=== PATIENT | male | born 1980 | race Caucasian/White ===

== ENCOUNTER 2021-09-17 09:44 | Emergency (ER) | payer BC, SELFPAY ==
[2021-09-17 09:45] VITALS: BP 136/88; PULSE 85; RESP 16; TEMP 36.6; O2SAT 99; BMI 27.5
--- NOTE | 2021-09-17 10:03 | EDS_ITS ---
HPI <KAVON Lopez - Last Filed: 09/17/21 10:18> History of Present Illness Chief Complaint: Cellulitis Narrative Narrative: 41-year-old male with no past medical history presents with redness on his right lower leg that has been present for 3 days. It is warm and tender to the touch and has been slightly spreading up the leg. No trauma. No fever chills nausea vomiting. He was seen in urgent care today and they sent him to the ED for evaluation. He has not been on any medications for it. PFSH <KAVON Lopez - Last Filed: 09/17/21 10:18> [facility] Home Medications cephalexin 500 mg PO Q6 7 Days #28 capsule 09/17/21 [Rx Last Taken Unknown] Allergy/AdvReac Type Severity Reaction Status Date / Time No Known Allergies Allergy Verified 09/17/21 09:47 ROS <KAVON Lopez Last Filed: 09/17/21 10:18> ROS ED ROS Narrative Constitutional: Negative for fever, chills, malaise. Eyes: Negative for visual change. ENT: Negative for sore throat, ear pain, rhinorrhea. CVS: Negative for palpitations, chest pain, syncope. Respiratory: Negative for shortness of breath, cough. GI: Negative for abdominal pain, nausea, vomiting. : Negative for dysuria. Neuro: Negative for headache, motor/sensory dysfunction. Skin: Positive for erythema. Negative for abscess, or wound. Musc: Negative for joint pain, swelling, trauma. Heme: Negative for easy bruising, bleeding, lymphadenopathy. EXAM <KAVON Lopez Last Filed: 09/17/21 10:18> Physical Exam Narrative Exam Narrative: CONST: Patient sitting in no acute distress. EYES: Normal inspection. ENT: Normal inspection, moist mucous membranes. NECK: Normal inspection. RESP: No respiratory distress, CTAB. CVS: Regular rate and rhythm, no murmur, no gallop. SKIN: Palm-sized area of erythema and warmth on right lower mid tibia. No abrasions or breaks in the skin. No fluctuance or crepitus. No drainage. EXTREMITIES: Normal appearance, no pedal edema. 2+ dorsalis pedis pulse. NEURO: Oriented x4. PSYCH: Normal affect. Const Vital Signs: 09/17/21 09:45 Temperature 98 F Temperature Source Temporal Pulse Rate 85 Respiratory Rate 16 Blood Pressure 136/88 H Blood Pressure Mean 104 Pulse Ox 99 Oxygen Delivery Method Room Air <Dr. Clif Jiménez, - Last Filed: 09/17/21 10:31> Physical Exam Const Vital Signs: 09/17/21 09:45 Temperature 98 F Temperature Source Temporal Pulse Rate 85 Respiratory Rate 16 Blood Pressure 136/88 H Blood Pressure Mean 104 Pulse Ox 99 Oxygen Delivery Method Room Air MDM <KAVON Lopez - Last Filed: 09/17/21 10:18> [facility] Treatment and Re-Evaluation Narrative: Patient presents with redness of his right lower leg. He appears wel l and nontoxic. Vital signs within normal limits. He has an erythematous area on the right mid tibia that is warm and tender to the touch. Extremity is neurovascularly intact. There is no calf tenderness and it is not in the distribution of DVT. Exam is consistent with cellulitis. He will be placed on Keflex 4 times daily x1 week and given a PCP referral. He was counseled to return for worsening symptoms and was discharged in stable condition. 1. Cellulitis, right leg <Dr. Clif Jiménez, - Last Filed: 09/17/21 10:31> [facility] Narrative Medical decision making narrative: Patient was seen with me. I did a [id number] examination with the patient. I agree with the history and physical examination. Patient presents with redness and warmth to his right lower leg over the past 3 days. Patient states it is gradually gotten worse. Patient denies any fevers or chills. Patient denies any nausea or vomiting. Patient denies any chest pain. Patient denies any calf pain or tenderness. Patient denies any trauma or injury. Patient denies any puncture wounds. Vital signs are stable. Patient is afebrile. Patient is in no acute distress. Skin is warm and dry. There is some erythema and warmth over the anterior aspect of the right lower leg. There is no fluctuance. There is no evidence of any abscess. There is no induration. There is no discharge or drainage. There is no calf tenderness. Pedal pulses are equal bilaterally. Sensation was int act to light touch in all digits. Capillary refill was less than 2 seconds in all digits. There is full range of motion. Patient was advised that this is a cellulitis. Patient was given a dose of K eflex here. Patient was given a prescription for Keflex. Patient was instructed to follow-up with his primary care physician in 5 to 7 days. Patient understood and was agreeable with the plan. All questions were answered. Discharge Plan Triage Chief Complaint: Cellulitis ED Provider: More Og Dx/Rx/DC Orders Clinical Impression: Cellulitis of leg, right Instructions: ED Cellulitis Prescriptions: New cephalexin [cephalexin] 500 MG capsule 500 mg PO Q6 7 Days Qty: 28 RF: 0 Primary Care Provider: Care Physician,No Primary Referrals: Stephanie Earl DO [STAFF PHYSICIAN] - NOT,DEFINED [NON-STAFF] - Disposition Disposition: Home, Self Care
[2021-09-17] MEDS: Cephalexin 250 MG Capsule 500 MG PO (10:34)
[2021-09-17 10:44] VITALS: BP 136/88; PULSE 81; PULSE 85; RESP 16; TEMP 36.6; O2SAT 99
--- NOTE | 2021-09-17 10:47 | ED.RN ---
THIS NURSE REVIEWED D/C INSTRUCTIONS WITH PT. PT VERBALIZED UNDERSTANDING OF INSTRUCTIONS. PT DENIES FURTHER NEEDS OR QUESTIONS AT THIS TIME. PT AMBULATES FROM ROOM ON OWN WITHOUT ASSISTANCE FROM STAFF
== END 2021-09-17 10:48 | disposition home or self-care (01) ==
LOC: ED 10:23
PROVIDERS: Emergency Provider Physician Assistant; Visit Provider Physician Assistant
DX: L03.115 Cellulitis of right lower limb (principal)
CPT/HCPCS: 99283